=== PATIENT | male | born 1955 | race African-American/Black ===

== ENCOUNTER 2019-02-15 12:51 | Emergency (ER) | payer MEDICARE, MEDICAID ==
[~2019-02-15] VITALS: Ht 160 cm; Wt 73.0 kg
[2019-02-15 13:25] VITALS: BP 162/93
[2019-02-15 15:45] LABS: CLARITY URINE CLEAR (CLEAR); COLOR URINE YELLOW (YELLOW); KETONES URINE TRACE (NEGATIVE); LEUKOCYTE ESTERASE URINE NEGATIVE (NEGATIVE); NITRITE URINE NEGATIVE (NEGATIVE); OCCULT BLOOD URINE TRACE (NEGATIVE); PH URINE 5.5 (4.5-8.0); PROTEIN URINE NEGATIVE (NEGATIVE); SPECIFIC GRAVITY URINE 1.028 (1.005-1.030)
[2019-02-15] MEDS ORDERED: AZITHROMYCIN 500 MG TABLET PO ONE (16:15)
[2019-02-15] MEDS ORDERED: CEFTRIAXONE SODIUM 250 MG/VIAL IM ONE (16:15)
[2019-02-15] MEDS ORDERED: LIDOCAINE HCL 1% 20ML VIAL (Pyxis) INJ INFIL ONE (16:15)
== END 2019-02-15 16:56 | disposition home or self-care (01) ==
LOC: ER 12:51
DX: R30.0 Dysuria (principal); R31.9 Hematuria, unspecified; Z20.2 Contact with and (suspected) exposure to infections with a predominantly sexual mode of transmission; I10 Essential (primary) hypertension; Z98.890 Other specified postprocedural states
CPT/HCPCS: 81003; 96372; 99283; J0696; J3490

== ENCOUNTER 2019-02-23 02:10 | Emergency (ER) | payer MEDICARE, MEDICAID ==
[~2019-02-23] VITALS: Ht 167.6 cm; Wt 70.0 kg
[2019-02-23 02:48] LABS: CLARITY URINE CLEAR (CLEAR); COLOR URINE YELLOW (YELLOW); KETONES URINE NEGATIVE (NEGATIVE); LEUKOCYTE ESTERASE URINE TRACE (NEGATIVE); NITRITE URINE NEGATIVE (NEGATIVE); OCCULT BLOOD URINE NEGATIVE (NEGATIVE); PH URINE 6.5 (4.5-8.0); PROTEIN URINE NEGATIVE (NEGATIVE); SPECIFIC GRAVITY URINE 1.006 (1.005-1.030); UROBILINOGEN URINE 0.2 E.U./dL (0.2-1.0)
[2019-02-23 04:02] VITALS: BP 129/71
== END 2019-02-23 04:07 | disposition home or self-care (01) ==
LOC: ER 02:10
DX: N39.0 Urinary tract infection, site not specified (principal); I10 Essential (primary) hypertension; Z98.890 Other specified postprocedural states
CPT/HCPCS: 99283